=== PATIENT | female | born 1990 | race Caucasian/White ===

== ENCOUNTER 2022-02-28 14:18 | Emergency (ER) | payer MEDICAID ==
[~2022-02-28] VITALS: Ht 167.6 cm; Wt 47.6 kg
[2022-02-28 16:43] VITALS: BP 108/64
[2022-02-28] MEDS ORDERED: CIPR7.5D9 LEFT EAR (17:07)
--- NOTE | 2022-02-28 17:17 | NUR ---
Patient discharged to home in stable condition. Written and verbal after care instructions given. Patient verbalizes understanding of instruction.
[2022-02-28] MEDS ORDERED: NEOM10DR11 LEFT EAR (19:21)
== END 2022-02-28 17:18 | disposition home or self-care (01) ==
LOC: ER 14:27
DX: H60.92 Unspecified otitis externa, left ear (principal); H92.02 Otalgia, left ear; Z79.899 Other long term (current) drug therapy